=== PATIENT | male | born 1980 | race Two or more races ===

== ENCOUNTER 2025-05-12 07:38 | Emergency (ER) | payer OTHER ==
[~2025-05-12] VITALS: Ht 185.4 cm; Wt 90.7 kg
[2025-05-12 08:33] LABS: BASO % 1.1 % (0.1-1.2); EOS # 0.11 (0.04-0.54); EOS % 2.3 % (0.7-7.0); HEMATOCRIT 37.5 % (40.1-51.0); HEMOGLOBIN 12.7 g/dL (13.7-17.5); LYMPH # 0.79 (1.18-3.74); LYMPH % 16.6 % (19.3-53.1); MEAN CORPUSCULAR HEMOGLOBIN 28.5 pg (25.6-32.2); MONO # 0.33 (0.24-0.82); MONO % 6.9 % (4.7-12.5); NEUT # 3.46 (1.56-6.13); NEUT % 72.7 % (34.0-71.1); PLATELET COUNT 210 K/uL (163-369); RED BLOOD COUNT 4.46 M/uL (4.63-6.08); RED CELL DISTRIBUTION WIDTH 13.5 % (11.6-14.4)
[2025-05-12 09:03] LABS: COVID-19 AG NEGATIVE (NEGATIVE); INFLUENZA A AG NEGATIVE (NEGATIVE); INFLUENZA B AG NEGATIVE (NEGATIVE)
== END 2025-05-12 09:21 | disposition home or self-care (01) ==
LOC: ER 07:58
PROVIDERS: General Practice
DX: J06.9 Acute upper respiratory infection, unspecified (principal); R50.9 Fever, unspecified; Z20.822 Contact with and (suspected) exposure to COVID-19